=== PATIENT | male | born 1990 | race American Indian/Alaskan Native ===

== ENCOUNTER 2016-11-09 10:15 | Emergency (ER) | payer SELFPAY ==
[2016-11-09] MEDS ORDERED: PEPCID IV ONE (10:37)
[2016-11-09] MEDS ORDERED: BENADRYL IV ONE (10:37)
[2016-11-09] MEDS ORDERED: ADRENALINE P/F SUB-Q ONE (10:38)
--- NOTE | 2016-11-09 10:42 | Emergency Department Report ---
HPI - General Chief Complaint: Allergic Reaction Time Seen by Provider: 11/09/16 10:36 - HPI HPI: This is a 25-year-old Afro-[place] male who presents to the emergency department after he was stung on the forehead and left mid back by 2 different yellow jackets about 45 minutes prior to presentation. The patient developed some swelling in the areas of the stings as well as some hives, itching. While he denies any swelling of the lips, tongue or throat, he does complain that the throat feels scratchy. He has a previous history of allergy to bee stings. He did not take anything for symptoms prior to presentation. He denies any chest pain, shortness breath, nausea, vomiting or fever. He does not have a primary care physician. ED Past Medical Hx - Past Medical History Previous Medical History?: No - Surgical History Past Surgical History?: No - Social History Smoking Status: Never Smoker Substance Use Type: None - Medications Home Medications: Home Medications Medication Instructions Recorded Confirmed Last Taken Type Famotidine [Pepcid] 20 mg PO BID #8 tablet 11/09/16 Unknown Rx predniSONE [Deltasone] 20 mg PO QDAY #4 tab 11/09/16 Unknown Rx ED Review of Systems ROS: Stated complaint: BEE STING Other details as noted in HPI Comment: All other systems reviewed and negative Constitutional: denies: chills, fever Eyes: denies: eye pain, eye discharge, vision change ENT: throat pain (scratchy). denies: ear pain Respiratory: denies: cough, shortness of breath, wheezing Cardiovascular: edema (swelling to forehead and back, locally). denies: chest pain, palpitations Gastrointestinal: denies: abdominal pain, nausea, diarrhea Genitourinary: denies: urgency, dysuria Musculoskeletal: denies: arthralgia, myalgia Skin: rash (urticaria), pruritus Neurological: denies: headache, weakness, paresthesias Physical Exam - Physical Exam Vital Signs: Vital Signs 11/09/16 10:20 Temperature 98.2 F Pulse Rate 68 Respiratory 17 Rate Blood Pressure 112/56 O2 Sat by Pulse 100 Oximetry Physical Exam: GENERAL: The patient is well-developed well-nourished. HEENT: Extraocular motions are intact. Patient has moist mucous membranes. Pupils equal reactive to light bilaterally. Oropharynx is clear without tonsillar hypertrophy, erythema or exudates. There is no angioedema of the tongue or lips. Mallampati of 1. No drooling or trismus. NECK: Supple. Trachea is midline. CHEST/LUNGS: Clear to auscultation. There is no respiratory distress noted. HEART/CARDIOVASCULAR: Regular. There is no tachycardia. There is no gallop rub or murmur. ABDOMEN: Abdomen is soft, nontender. Patient has normal bowel sounds. There is no abdominal distention. SKIN: There is some small amount of non-expanding swelling to the right forehead just over the eyebrow where the patient says he was stung. No visible stinger left in place. There is no erythema, fluctuance. There is no swelling or stinger seen to the left mid back where the patient says he was also stung. There is some mild generalized urticaria seen. NEURO: The patient is awake, alert, and oriented. The patient is cooperative. The patient has no focal neurologic deficits. The patient has normal speech. MUSCULOSKELETAL: There is no tenderness or deformity. There is no limitation range of motion. There is no evidence of acute injury. ED Course Vital Signs 11/09/16 10:20 Temperature 98.2 F Pulse Rate 68 Respiratory 17 Rate Blood Pressure 112/56 O2 Sat by Pulse 100 Oximetry ED Medical Decision Making - Medical Decision Making 25-year-old male presents after being stung on the forehead and in the back by a yellow jacket and having what appears to be an allergic reaction to it. There was some localized swelling seen in the forehead but none on the back on physical examination. Patient felt as if his throat was scratchy but there was no visible angioedema of the tongue, lips or throat. Vital signs stable throughout his ED course. He was given Pepcid, Solu-Medrol, Benadryl and one dose of subcutaneous epinephrine. He was evaluated in the emergency department and reevaluated multiple times over about 4 hours and has remained stable and feels improved. He'll go home on a few days of steroids and Pepcid and will use Benadryl as necessary for urticaria or pruritus. He will return to the ER for any worsening of symptoms or any acute distress. - Differential Diagnosis allergic reaction, urticaria, dermatitis, angioedema Critical Care Time: No Critical care attestation.: If time is entered above; I have spent that time in minutes in the direct care of this critically ill patient, excluding procedure time. ED Disposition Clinical Impression: Yellow jacket sting allergy Allergic reaction Qualifiers: Encounter type: initial encounter Qualified Code(s): T78.40XA - Allergy, unspecified, initial encounter Disposition: TO HOME OR SELFCARE Is pt being admited?: No Condition: Stable Instructions: Insect Bite or Sting (ED), Allergies (ED) Additional Instructions: Please follow-up with a primary care physician. Return to the emergency department with any worsening of your symptoms or any acute distress. Prescriptions: Famotidine [Pepcid] 20 mg PO BID #8 tablet predniSONE [Deltasone] 20 mg PO QDAY #4 tab Referrals: PRIMARY CARE, [Primary Care Provider] - 3-5 Days [facility] [Outside] - 3-5 Days [facility] [Outside] - 3-5 Days [facility] [Outside] - 3-5 Days Time of Disposition: 14:08
[2016-11-09] MEDS ORDERED: ADRENALIN ONE (10:58)
[2016-11-09 14:23] VITALS: BP 117/60
== END 2016-11-09 14:23 | disposition home or self-care (01) ==
LOC: ED 10:15
DX: T78.40XA Allergy, unspecified, initial encounter (principal); X58.XXXA Exposure to other specified factors, initial encounter; Y93.89 Activity, other specified; Y92.89 Other specified places as the place of occurrence of the external cause; Y99.8 Other external cause status
CPT/HCPCS: 96372; 96374; 96375; 99283; J0171; J1200; J2930; 99282